=== PATIENT | female | born 1955 | race Caucasian/White ===

== ENCOUNTER → 2016-07-07 | Outpatient (CLI) | payer BC ==
--- NOTE | 2016-07-07 14:05 | RAD ---
Indication acute right flank pain. History of kidney stones. Single KUB was obtained. Note is made of a previous examination 12/19/2014. The abdominal gas pattern is unremarkable. There is a large amount of stool noted in the large bowel. There are bilateral renal calculi left more numerous than right. A definite calculus is not seen along the course of either ureter but one could easily be obscured by overlying stool. If clinically warranted additional evaluation could be obtained with CT. IMPRESSION: Bilateral renal calculi
== END | disposition home or self-care (01) ==
LOC: DXRADRC 13:51
PROVIDERS: ATTEND Nurse Practitioner Family
DX: N20.0 Calculus of kidney (principal); Z87.442 Personal history of urinary calculi
CPT/HCPCS: 74000

== ENCOUNTER → 2016-07-08 | Outpatient (CLI) | payer BC ==
--- NOTE | 2016-07-08 13:30 | RAD ---
Indication characterize renal calculi. Axial noncontrast imaging through the abdomen was performed. The pelvis was not studied. No similar imaging is available. Note is made of a plain film examination one day earlier demonstrating bilateral renal calculi. The lung bases are clear. There is some fatty infiltration of the liver. A focal mass lesion in the liver is not seen. The spleen appears unremarkable. There is cholelithiasis. The pancreas appears unremarkable. No adrenal pathology is seen. There are bilateral renal calculi. Left calculi are larger than the right. Largest left renal calculus measures approximately 1.4 cm. The largest right renal calculus measures 7 mm. There is no definite mass seen associated with either kidney. There is no hydronephrosis or dilatation of the visualized segments of either ureter. No acute finding is apparent in the abdomen. IMPRESSION: No acute finding seen in the abdomen. Bilateral intrarenal calculi. Left renal calculi are somewhat larger than the right. Fatty infiltration of the liver. Cholelithiasis. PQRS Compliance Statement: One or more of the following individualized dose reduction techniques were utilized for this examination: 1. Automated exposure control 2. Adjustment of the mA and/or kV according to patient size 3. Use of iterative reconstruction technique
== END | disposition home or self-care (01) ==
LOC: CT 12:47
PROVIDERS: ATTEND Nurse Practitioner Family
DX: K80.20 Calculus of gallbladder without cholecystitis without obstruction (principal); K76.0 Fatty (change of) liver, not elsewhere classified; K20.0 Eosinophilic esophagitis; N20.0 Calculus of kidney
CPT/HCPCS: 74150

== ENCOUNTER → 2016-09-15 | Outpatient (CLI) | payer BC ==
--- NOTE | 2016-09-15 15:02 | RAD ---
Right RIBS with chest, 3 views, 09/15/2016: History: Fall, rib pain No fracture or rib abnormality is detected. There is no evidence of underlying pneumothorax, hemothorax or pulmonary infiltrate. The heart size is normal. There are mild scattered degenerative changes in the spine. IMPRESSION: No acute right rib abnormality is detected.
--- NOTE | 2016-09-15 15:04 | RAD ---
KUB, 09/15/2016: History: Fall, right rib pain, kidney stones There is a moderate amount of gas in large and small bowel in a nonspecific pattern. There are moderate sized intrarenal calculi on the left. The patient's known right renal calculi are poorly visualized due to overlying bowel. There is no evidence of organomegaly. Mild degenerative changes are present in the spine. IMPRESSION: 1. Renal calculi. 2. No acute abdominal abnormality is detected.
== END | disposition home or self-care (01) ==
LOC: DXRADRC 11:28
PROVIDERS: ATTEND Physician Assistant Medical
DX: N20.0 Calculus of kidney (principal); Z87.442 Personal history of urinary calculi; Z91.81 History of falling
CPT/HCPCS: 71101; 74000

== ENCOUNTER → 2017-01-14 | Outpatient (CLI) | payer BC ==
--- NOTE | 2017-01-14 16:49 | RAD ---
KUB Clinical Indication: NEPHROLITHIASIS, RIGHT FLANK PAIN Comparison: KUB dated 09/15/2016, abdominal CT dated 07/08/2016 Findings: Left greater than right radiopaque foci overlying the kidneys consistent with known nonobstructive calculi, not significantly changed. Nonobstructive bowel gas pattern. Moderate colonic stool. No obvious free air. No acute osseous abnormality. IMPRESSION: Left greater than right radiopaque foci overlying the kidneys consistent with known nonobstructive calculi, not significantly changed.
== END | disposition home or self-care (01) ==
LOC: DXRAD 15:45
PROVIDERS: ATTEND Nurse Practitioner Family
DX: N20.0 Calculus of kidney (principal)
CPT/HCPCS: 74000

== ENCOUNTER → 2017-02-02 | Outpatient (CLI) | payer BC ==
--- NOTE | 2017-02-02 16:45 | RAD ---
Thyroid ultrasound 02/02/2017 Indication: Elevated parathyroid hormone Comparison study: None Discussion: Ultrasound evaluation of the thyroid gland was performed. Static images were saved to PACS. With multiple bilateral thyroid nodules. Thyroid gland is enlarged. The right thyroid measures 6.0 x 2.1 x 2.0 cm. The left thyroid measures 5.6 x 2.2 x 1.8 cm. The entirety of the thyroid gland is essentially replaced with multiple nodules. Very little normal appearing background thyroid parenchyma is seen. Within the left thyroid dominant nodules include a 1.5 cm isoechoic solid nodule in the superior thyroid, a 1.2 cm nodule in the mid left thyroid, and a 1.2 cm nodule in the inferior left thyroid. In the mid left thyroid there appears to be a larger nodule measuring approximately 2.2 cm in diameter. Multiple smaller nodules are also present but not measured. On the right, nodules including 1.6 cm solid nodule in the superior to mid thyroid with areas of calcification. Within the inferior right thyroid there is a 1.7 cm solid nodule. 2 nodules are seen in the thyroid isthmus measuring 0.9 cm on the right 1.7 cm on the left. Multiple smaller subcentimeter hypoechoic nodules are noted on the right. The parathyroid glands were none visualized during this exam. Impression: 1.Multinodular goiter as described above. Multiple bilateral nodules, greater the 1 cm in size are described above. Notably a 1.6 cm nodule superior right thyroid contain small areas of calcification. Consider fine-needle aspiration as clinically indicated. 2. Nonvisualization of the parathyroid glands
== END | disposition home or self-care (01) ==
LOC: US 15:08
PROVIDERS: ATTEND Physician Assistant Medical
DX: E04.2 Nontoxic multinodular goiter (principal)
CPT/HCPCS: 76536